=== PATIENT | male | born 1955 | race Caucasian/White ===

== ENCOUNTER 2023-12-20 09:18 | Emergency (ER) | payer MEDICARE, OTHER ==
[2023-12-20 09:46] VITALS: BP 108/79; O2SAT 98
--- NOTE | 2023-12-20 09:54 | ED Physician Documentation ---
PD HPI WOUND RECHECK - Stated complaint Stated Complaint: RASH BOTH LEGS - Chief complaint Chief Complaint: Wound - Histroy obtained from History obtained from: Patient - Additional information Additional information: 68-year-old gentleman with history of COPD, former smoker, chronic kidney disease had a biopsy of likely cancerous lesion on the left leg 10 days ago. He has increased swelling and redness around that as well as general redness of both legs. More itchy than painful. PD PAST MEDICAL HISTORY - Past Medical History Past Medical History: Yes Cardiovascular: Hypertension, [place] Respiratory: COPD - Past Surgical History Past Surgical History: Yes Cardiovascular: Coronary stent - Present Medications Home Medications: Ambulatory Orders Medication Instructions Recorded Confirmed Triamcinolone Acetonide 0.1% 1 gm TP DAILY #2 ea 12/20/23 [Triamcinolone Acetonide] cephALEXin [Keflex] 500 mg PO Q6H #28 cap 12/20/23 - Allergies Allergies/Adverse Reactions: Allergies Allergy/AdvReac Type Severity Reaction Status Date / Time No Known Drug Allergies Allergy Verified 12/20/23 09:36 - Social History Does the pt smoke?: No Smoking Status: Never smoker Does the pt drink ETOH?: No Does the pt have substance abuse?: No - Immunizations Immunizations are current?: Yes PD ED PE NORMAL - Vitals Vital signs reviewed: Yes - General General: Alert and oriented X 3, No acute distress - Extremities Extremities: Other (There is a quarter sized ulcer with mild surrounding cellulitis to the left leg, anteromedially just below the knee. He has venous stasis changes of both legs as well. Good pedal pulses with warm feet.) - Neuro Neuro: Alert and oriented X 3, Normal speech Results - Vitals Vitals: Vital Signs - 24 hr 12/20/23 09:31 Temperature 36.5 C Heart Rate 78 Respiratory 16 Rate Blood Pressure 108/79 O2 Saturation 98 PD Medical Decision Making - ED course ED course: He is chronic venous stasis along with milder wound infection of a biopsy site of [place] skin [place] He is started on Keflex after wound culture and also a topical steroid for the venous stasis with compression stocks there. Departure - Departure Disposition: 01 Home, Self Care Clinical Impression: Wound infection Condition: Good Record reviewed to determine appropriate education?: Yes Instructions: Chronic Venous Insufficiency Prescriptions: cephALEXin [Keflex] 500 mg PO Q6H #28 cap Triamcinolone Acetonide 0.1% [Triamcinolone Acetonide] 1 gm TP DAILY #2 ea Comments: I sent your prescriptions electronically to the [facility] in [place]. 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 For the wound infection I am starting a antibiotic and there is a wound culture pending and we will call you if a change in therapy is needed based on that in approximately 48 hours. For the venous stasis I am prescribing a topical steroid cream which you should apply daily and use it unde r compression socks. Call your doctor to arrange a follow-up appointment, make the next available appointment. In the interim, return anytime if worse or if new symptoms develop.
== END 2023-12-20 10:13 | disposition home or self-care (01) ==
LOC: ED 09:18
DX: T81.41XA Infection following a procedure, superficial incisional surgical site, initial encounter (principal); L08.89 Other specified local infections of the skin and subcutaneous tissue; Y83.8 Other surgical procedures as the cause of abnormal reaction of the patient, or of later complication, without mention of misadventure at the time of the procedure; I87.2 Venous insufficiency (chronic) (peripheral)
CPT/HCPCS: 99282; 99283